=== PATIENT | female | born 1955 | race Caucasian/White ===

== ENCOUNTER → 2016-09-15 | Day surgery (SDC) | payer OTHER ==
[~2016-09-15] VITALS: Ht 165.1 cm; Wt 71.4 kg
[~2016-09-15] MED LIST: *ONDANSETRON 4 MG VIAL PERIprocedural Use ONLY ONE; *morphine SULFATE 8 MG/ML PERIprocedure ONLY ONE; BACITRACIN TOP OINT 15 GM TUBE ONE; BUPIVACAINE HCL PF 0.5% 30 ML VIAL ONE; CHLORHEXIDINE GLUCONATE 2 % 1 PACK (2 CLOTHS) TOPICAL PRN; CLON1 PO; DEXAMETHASONE SOD PHOS 4 MG/ML VIAL ONE; DICLOFENAC SODIUM 37.5 MG/ML VIAL IV PUSH ONE; DO NOT ADM ANY ANTICOAGULANT DRUGS PRN; FAMOTIDINE 20 MG/2 ML VIAL ONE; INSULIN HUMAN REGULAR 1,000 UNITS/10 ML VIAL SQ PRN; LACT10SO PO; LACTATED RINGER'S 1000 ML INJ 1,000 ML IV SCH; LACTATED RINGER'S 1000 ML IV PRN; LIDOCAINE HCL 1% 50 ML VIAL ONE; LIDOCAINE HCL 2% 50 ML VIAL ONE; LOSA25TA PO; METOPROLOL TARTRATE 25 MG TAB PO PRN; MIDAZOLAM HCL 2 MG/2 ML VIAL ONE; ONDANSETRON HCL 4 MG/2 ML VIAL IV PUSH ONE; PHENYLEPH/NS 1000 MCG/10 ML SYR IV ONE; POVIDONE IODINE 5% (ANTISEPSIS KIT) 4 APPLICATIONS EACH NARE PRN; PREV15CA15 PO; PROPOFOL 200 MG/20 ML AMP IV ONE; SODIUM CHLORID 0.9% 500 ML IV PRN; TRAM50TA PO; TRIAMCINOLONE ACETONIDE 40 MG/ML VIAL ONE; ZYRT10CA PO; ceFAZolin 1,000 MG/NS 100 ML IV SCH; ceFAZolin INJ 1,000 MG VIAL IV ONE; ePHEDrine/NS 25 MG/5 ML SYR IV ONE; fentaNYL CITRATE 250 MCG/5 ML AMP ONE
[2016-09-15 05:59] VITALS: BP 161/74; PULSE 73; RESP 16; TEMP 98.4; O2SAT 96
--- NOTE | 2016-09-15 12:31 | RADRPT ---
EXAM DATE/TIME: 09/15/2016 10:11 [place] COMPARISON: No previous studies available for comparison. INDICATIONS : Left wrist fusion. MEDICAL HISTORY : None. SURGICAL HISTORY : None. ENCOUNTER: Initial ACUITY: 1 day PAIN SCORE: Non-responsive. LOCATION: Left upper extremity FINDINGS: AP and lateral views of the left wrist were obtained and demonstrate interval placement of a screw pl ate fixation device transfixing the central carpus and distal radius. The alignment appears anatomic. There is overlying soft tissue swelling. CONCLUSION: Status post open ridgid internal fixation. Ruddy Campbell MD on September 15, 2016 at 12:28 Board Certified Radiologist. This report was verified electronically.
[2016-09-15 14:45] VITALS: BP 128/70; PULSE 86; RESP 18; TEMP 97.6; O2SAT 97
--- NOTE | 2016-09-18 08:19 | MP ---
cc: LEILA CORTES DATE OF SURGERY: 09/15/2016 PREOPERATIVE DIAGNOSIS End-stage arthritis, left wrist POSTOPERATIVE DIAGNOSIS End-stage arthritis, left wrist. PROCEDURE Left wrist fusion with distal radius bone grafting and allograft bone graft. SURGEON Dr. Leila Cortes. ANESTHESIA General and local. TOURNIQUET TIME 2 hours at 250 mmHg. IMPLANTS 1. Medartis wrist fusion plate, short arc. 2. DBX bone putty. INDICATIONS FOR PROCEDURE Leonard Ayala is a 61-year-old right-hand dominant female with many years of left wrist pain. MRI showed end-stage arthritis and clinical exam showed minimal range of motion. The patient has been treated for hepatitis C. She is also hard of hearing. MRI reviewed with the patient which shows end-stage arthritis to the wrist. Unfortunately, she is not a candidate at this time for scaphoid excision, four corner fusion. At this time she requested left wrist fusion. She understands she will have supination and pronation of the wrist but no flexion extension. She understands she is at risk for wound complications, infection, stiffness, paresthesias, need for revision surgery, problems with the hardware, loosening of the hardware, nonunion, malunion, incomplete fusion, need for additional surgeries, PE, DVT and she elected to proceed. DESCRIPTION OF PROCEDURE The patient was identified in the preoperative holding area and upper extremity was marked. The patient was taken to the operating room where anesthesia was induced. The left upper extremity was prepped and draped in normal sterile fashion. Tourniquet was inflated to 250 mmHg for 2 hours. A longitudinal incision was made on the dorsum of the wrist. The extensor retinaculum was identified and incised between the third and fourth dorsal compartments. Care was taken to protect the extensor pollicis longus. The fourth compartment was then elevated and the extensor tendons were protected throughout the procedure. The extensor retinaculum was tagged for later repair. Then a capsular incision was made and also tagged for later repair. Upon opening the joint there was significant degenerative fluid and significant destruction of the scaphoid and lunate. The cartilage which was remaining was removed from the bones using a water cooled david and Rongeur. The decision was made to remove the scaphoid entirely as well as the lunate as there was very little bone left after removing the cartilage. This was used as part of the bone graft. A cortical window was made in the dorsum of the distal radius and additional cancellus bone graft was harvested from the distal radius. This was mixed with the scaphoid bone as well as with DBX bone putty. The decision was made not to use iliac crest bone grafting. Following this the Medartis plates were tested including the long and short arc. The patient had a very small distal radius and after removal of the scaphoid and lunate the decision was made to use the short arc Medartis fusion plate. This was provisionally held in place with K-wires and then two nonlocking screws were placed followed by multiple locking screws which were confirmed under fluoroscopy to be in good position. The plate barely fit over the patient's radius proximally. Again, this was confirmed under fluoroscopy to be in good position with appropriate arc of the wrist in extension as well as slight ulnar deviation. The plate was in good position just proximal to the third CMC joint. Following this the tourniquet was released. Hemostasis was obtained. The capsule was closed over the plate to cover the distal aspect of the plate with PDS and the extensor retinaculum was also closed with PDS with good tension of the tendons. The skin was then closed with Monocryl and Nylon. The patient was placed into a splint and awoken from anesthesia without any complications. 20 ccs of 2% lidocaine with no epinephrine was used to perform local anesthesia over the wrist. I will see the patient back in 2 weeks for suture removal. She was given a prescription for antibiotics and pain medication. Again, she understands she is at risk for nonunion, need for additional surgeries, hardware complications and pain. At the conclusion of the procedure she had full supination, pronation and the wrist again was fused in extension and ulnar deviation. MD SAVANAH Blank/AMOS /10:36 PM /7:58 AM [facility]
== END | disposition home or self-care (01) ==
LOC: HSDC 05:23
PROVIDERS: ATTEND Orthopaedic Surgery
DX: M19.032 Primary osteoarthritis, left wrist (principal); I10 Essential (primary) hypertension
CPT/HCPCS: 01830; 25825; 73110; 76000; C1713; J0690; J1100; J1130; J2250; J2270; J2370; J2405; J3010; J7120; J3301